=== PATIENT | male | born 1995 | race Caucasian/White ===

== ENCOUNTER 2024-09-28 15:12 | Emergency (ER) | payer SELFPAY ==
[2024-09-28 15:19] VITALS: BP 149/95; PULSE 124; TEMP 37.2; O2SAT 95; BMI 27.3
--- NOTE | 2024-09-28 15:25 | ED.DENTAL1 ---
HPI - Dental/Oral General Chief complaint: Dental/Oral Stated complaint: DENTAL PAIN Time Seen by Provider: 09/28/24 15:14 Source: patient Mode of arrival: walk-in Limitations: no limitations History of Present Illness HPI Narrative: 29-year-old male presents to the ER with concerns of dental pain pain most prominent in the right rear molar and left upper premolars. Patient admits to history of poor dentition has had a tooth extracted in the past but has not seen a dentist in recent years. He denies any recent antibiotic use and is allergic to the penicillin group. He denies any chest pain or shortness of breath denies difficulty swallowing or fever. He does use a vape pen. Admits that the pain involves throbbing aching and at times sharp zap like pains with irritation. He has been using Tylenol and Motrin with little relief. He has noted some swelling along his gums and is concerned about infection with presentation today. He does not have dental insurance but intends to contact the [facility] on Monday to discuss a follow-up and further treatment. Patient speaking in clear sentences and swallowing secretions appears in no distress but admits to moderate discomfort and has teeth that at times exacerbates. He denies any recent dental injury but admits to known dental cavities that have gone untreated. MD Complaint: Reports tooth pain Onset (ago): week(s) (2 wks- present for months. ) Duration: intermittent Severity: moderate Relieving factors: NSAIDs Exacerbating factors: chewing, cold and heat Context: history of dental caries Related Data Previous Rx's �Medication �Instructions �Recorded chlorhexidine gluconate 0.12 % 15 ml buccal BID #1,893 mL 09/28/24 mouthwash (Peridex) clindamycin HCl 300 mg capsule 300 mg PO Q8H 10 days #30 caps 09/28/24 ibuprofen 600 mg tablet 600 mg PO TID PRN pain #30 tabs 09/28/24 Allergies Allergy/AdvReac Type Severity Reaction Status Date / Time Penicillins Allergy Severe Hives Verified 09/28/24 15:19 Review of Systems ROS Constitutional Denies: fever or chills Eyes Denies: change in vision Ears, nose, mouth, and throat Reports: other (+ dental pain); Denies: throat pain, neck pain or throat swelling Cardiovascular Denies: chest pain, palpitations or edema Respiratory Denies: shortness of breath, cough or wheezing Gastrointestinal Denies: abdominal pain, nausea or vomiting Genitourinary Denies: painful urination Musculoskeletal Denies: back pain or neck pain Integumentary/Breast Denies: rash Neurological Denies: headache or numbness in extremities Hematologic/Lymphatic Denies: easy bruising PFSH PFSH Social History Little interest or pleasure in doing things: not at all Feeling down, depressed, or hopeless: not at all Exam Narrative Exam Narrative: Nurses notes reviewed and patient is noted to be non-hypoxic. General: The patient is comfortable, alert and oriented x3, well appearing, non toxic in no apparent distress. Head: Atraumatic and normocephalic. Eyes: Normal conjunctiva, no exudates. ENT: The oropharynx is normal. No pharyngeal erythema, uvular edema, tonsillar exudates, asymmetry or trismus. Uvula is midline. Mouth on inspection shows no ulcerations. Multiple dental caries to teeth involving the gumline with irruption of left rear molar that appears chronically fractured and fracture to the tooth in the right premolar region upper jaw. There is minimal swelling of the gum without evidence of palpable abscess. There is no evidence of facial asymmetry or abscess formation in Floor of the mouth and tissue is soft. Tenderness exquisite to the areas of dental caries and chronically fractured tooth from dental decay. No tenderness in the submental or submandibular space. No tongue elevation or deviation. The patient has no evidence of periapical abscess, gums but gingiva appears irritated adjacent to teeth with notable cavities. no ulcerations. airway is patent. Neck: The neck demonstrates normal range of motion. No meningeals signs are present. No stridor. No masses or lymphandenopathy noted. Respiratory: No acute distress, lungs are clear to auscultation, no wheezing, rhonchi, or rales noted. No stridor or retractions are noted. Cardiovascular: Regular rate and rhythm Skin: The skin exam shows no evidence of rashes Neuro: Alert and oriented x4, normal speech Lymphatic: No cervical lymphadenopathy Constitutional Vital Signs, click to edit/add: Last Vital Signs Temp 99 F 09/28/24 15:19 Pulse 124 H 09/28/24 15:19 Resp 20 09/28/24 15:19 BP 149/95 H 09/28/24 15:19 Pulse Ox 95 09/28/24 15:19 O2 Del Method Room Air 09/28/24 15:19 Course Vital Signs Vital signs: Vital Signs Temperature 99 F 09/28/24 15:19 Pulse Rate 124 H 09/28/24 15:19 Respiratory Rate 20 09/28/24 15:19 Blood Pressure 149/95 H 09/28/24 15:19 Pulse Oximetry 95 09/28/24 15:19 Oxygen Delivery Method Room Air 09/28/24 15:19 Temperature 99 F 09/28/24 15:19 Pulse Rate 124 H 09/28/24 15:19 Respiratory Rate 20 09/28/24 15:19 Blood Pressure 149/95 H 09/28/24 15:19 Pulse Oximetry 95 09/28/24 15:19 Oxygen Delivery Method Room Air 09/28/24 15:19 MDM - Dental/Oral MDM Narrative Medical decision making narrative: Extensive discussion at bedside regarding patient's dental hygiene with multiple dental caries and multiple chronically fractured teeth. I do not feel palpable abscess for incision and drainage but inflammation along the gumline and swelling concerning for early infection and patient will be started on clindamycin pending his follow-up with dentist. We discussed this at length as the antibiotic may not help with his pain and it does come with potential side effects that were discussed at length and patient is encouraged to eat probiotics or yogurt to help mitigate any symptoms. We discussed continuing with his Tylenol Motrin regimen and a prescription will be sent. He will also be started on a Peridex mouthwash for care pending follow-up with dentistry. We discussed that symptoms will continue to progress until definitive treatment is met and should any of his symptoms worsen or new symptoms develop prior to getting follow-up he should come immediately back to the ER for reevaluation. His significant other requested a prescription of etodolac however I feel this may be more irritating to his stomach given the chronicity of his Motrin use and he was given a IM injection. Patient thankful hide no further concerns or questions The time was taken to give patient information to local dental clinics and I even printed off the application process for the [facility] to which she intends to go Monday for follow-up. He was given their numbers and other clinics that may help him as he is without dental insurance including a good Rx prescription to use for his medications today with first doses given here prior to discharge. The patient is to followup with primary care physician/ DDS in next 2 days or to return to the emergency department should any of the signs or symptoms worsen or new symptoms develop. Patient had questions answered. The patient agrees with the following Diagnosis and Treatment plan and the patient will be discharged home. Differential Diagnosis Differential diagnosis: Likely gingival abscess, dental caries, toothache, dental abscess and fracture of tooth Discharge Plan Discharge Chief Complaint: Dental/Oral Clinical Impression: Toothache, Dental caries Patient Disposition: Home, Self-Care Time of Disposition Decision: 15:35 Condition: Good Prescriptions / Home Meds: New ibuprofen 600 mg tablet 600 mg PO TID PRN (Reason: pain) Qty: 30 0RF clindamycin HCl 300 mg capsule 300 mg PO Q8H 10 Days Qty: 30 0RF chlorhexidine gluconate [Peridex] 0.12 % mouthwash 15 ml buccal BID Qty: 1893 0RF Rx Instructions: swish and spit Print Language: Romanian Instructions: Toothache (ED) Additional Instructions: [facility] [phone] ( Call monday for appt) Dental line for [facility] is [phone] Referrals: Asa Jose DO [Primary Care Provider] - 1 week
[2024-09-28] MEDS: BENZOCAINE 30 ML, lidocaine HCL 15 ML MM (15:53)
[2024-09-28] MEDS: CLINDAMYCIN HCL 150 MG CAPSULE 300 MG PO (15:54)
[2024-09-28] MEDS: KETOROLAC TROMETHAMINE 60 MG/2 ML VIAL IM (15:54)
== END 2024-09-28 16:07 | disposition home or self-care (01) ==
PROVIDERS: Emergency Provider Emergency Medicine; PCP Family Medicine
DX: K02.9 Dental caries, unspecified (principal); K08.89 Other specified disorders of teeth and supporting structures; F17.290 Nicotine dependence, other tobacco product, uncomplicated
CPT/HCPCS: 96372; 99284; J1885